=== PATIENT | female | born 1940 | race Asian ===

== ENCOUNTER 2016-08-09 15:41 | Observation (INO) | payer OTHER ==
[~2016-08-09] VITALS: Ht 139.7 cm; Wt 31.7 kg
[~2016-08-09 15:41] MED LIST: ASCA500 PO; CHOL100010 PO; CLIMARA TD; FSMD/70 PO; MULT-506 PO; NAPR1TAB9 PO
[2016-08-09] MEDS ORDERED: SODIUM CHLORIDE 0.9% 1000ML 1,000 ML IV STA (15:47)
[2016-08-09] MEDS ORDERED: LORAZEPAM 2 MG/ML 1 ML VIAL IV STA (15:47)
[2016-08-09] MEDS ORDERED: ONDANSETRON INJ 2 MG/ML 2 ML VIAL IV STA (15:47)
[2016-08-09] MEDS ORDERED: SODIUM CHLORIDE 0.9% 1000ML 500 ML IV STA (15:47)
--- NOTE | 2016-08-09 15:57 | EMERGENCY ROOM VISIT NOTE ---
History Report prepared by Gisella: Ethel Pinon Under the Supervision of: Dr. Timur Simon M.D. First contact with patient: 15:43 Chief Complaint: VOMITING Stated Complaint: NAUSEA, VOMITING, HEADACHE, DIZZINESS History of Present Illness The patient is a 75 year old female who presents to the Emergency Room with complaints of persistent dizziness that began prior to arrival. The patient reports that she was outside gardening today and became dizzy and shaky. She states that she went into her house and began vomiting. The patient has additionally associated eye pain, visual changes, chest pain, shortness of breath, and a headache. She denies any loss of consciousness or head trauma. The patient states that she felt okay prior to gardening today, and reports eating lunch and breakfast. She denies any recent illness. The patient denies any abdominal pain Source of History: patient Onset: prior to arrival Position: other (global) Quality: other (dizziness) Timing: other (persistent) Associated Symptoms: + SOB, + chest pain, + headache, + vomiting, No LOC, No abdominal pain Note: Associated Symptoms: headache, eye pain, visual changes, shaky Review of Systems See HPI for pertinent positives & negatives. A total of 10 systems reviewed and were otherwise negative. Past Medical & Surgical Medical Problems: (1) Abdominal adhesions (2) Biliary colic (3) Cholelithiasis (4) SBO (small bowel obstruction) Surgical Problems: (1) S/P appendectomy (2) S/P hysterectomy Family History Cancer Social History Smoking Status: Never Smoker Marital Status: Housing Status: lives with family Occupation Status: retired Current/Historical Medications Scheduled Alendronate Sodium (Alendronate Sodium), 70 MG PO WK Ascorbic Acid (Ascorbic Acid), 1,000 MG PO DAILY Cholecalciferol (Vitamin D 1000 Unit), 1,000 INTER.UNIT PO DAILY Cholestyramine (Cholestyramine), 4 GM PO BID Cyanocobalamin (Vitamin B12), 1,000 MCG PO DAILY Estradiol (Estradiol Transdermal System), 1 PATCH TOP WK Multiple Vitamins W/ Minerals (Womens 50+ Multi Vitamin), 1 TAB PO DAILY Scheduled PRN Zoebuxgkxu-Xtsopotrtplaf-Bejcc (Fioricet), 1 CAP PO TID PRN for Headache Meloxicam (Mobic), 7.5 MG PO DAILY PRN for Pain Methocarbamol (Methocarbamol), 375 MG PO HS PRN for Muscle Relaxer Allergies Coded Allergies: Tetracycline (Verified Allergy, Mild, UNKNOWN, 12/19/13) Codeine (Verified Allergy, Unknown, UNKNOWN, 12/19/13) Sulfa Drugs (Verified Allergy, Unknown, UNKNOWN, 12/19/13) Tramadol (Verified Allergy, Unknown, UNKNOWN, 12/19/13) Aspirin (Verified Adverse Reaction, Mild, GI UPSET, 12/11/13) NSAIDs (Verified Adverse Reaction, Mild, GI UPSET, 12/19/13) Physical Exam Vital Signs Date Time Temp Pulse Resp B/P Pulse Ox O2 Delivery O2 Flow Rate FiO2 08/09/16 18:53 73 16 111/53 100 Room Air 08/09/16 17:52 75 18 113/51 100 Room Air 08/09/16 17:25 72 14 125/46 100 Room Air 08/09/16 16:09 73 08/09/16 15:58 36.4 70 17 137/94 100 Room Air 08/09/16 15:54 98 Room Air Physical Exam GENERAL: Patient is in moderate distress secondary to vomiting. HEENT: No acute trauma, normocephalic atraumatic, mucous membranes moist, no nasal congestion, no scleral icterus. NECK: No stridor, no adenopathy, no meningismus, trachea is midline. LUNGS: Clear to auscultation bilaterally, no wheeze, no rhonchi, breath sounds equal. HEART: Without murmurs gallops or rubs, regular rate and rhythm. ABDOMEN: Soft, nontender, bowel sounds positive, no hernias, no peritonitis. EXTREMITIES: No cyanosis or edema, full range of motion of all the joints without pain or difficulty, no signs for acute trauma. NEUROLOGIC: Oriented x 3, no acute motor or sensory deficits, no focal weakness. SKIN: No rash, no jaundice, no diaphoresis. Medical Decision & Procedures ER Provider Diagnostic Interpretation: Radiology results as stated below per my review and radiologist interpretation: CT SCAN OF THE BRAIN WITHOUT IV CONTRAST CLINICAL HISTORY: Generalized weakness. Change in mental status. COMPARISON STUDY: MRI of the brain dated 07/21/2015. TECHNIQUE: Unenhanced axial CT scan of the brain is performed from the vertex to the skull base. CT DOSE: 537.48 mGy.cm FINDINGS: Brain parenchyma: There are age-related involutional changes noting mild subcortical and periventricular microangiopathic change. There is no hemorrhage, mass effect, or evidence of acute territorial ischemia by CT criteria. Mineralization is noted in the basal ganglia. Combs-white matter is preserved. No extra-axial fluid collection is seen. Ventricles, sulci, cisterns: Prominent secondary to involutional change. Intracranial vasculature: There is atherosclerotic calcification of the cavernous carotid arteries. Calvarium: Unremarkable. Sinuses and mastoids: The visualized paranasal sinuses are clear. The mastoid air cells are well pneumatized. Orbits: The bony orbits are grossly intact. There is evidence of bilateral ocular lens surgery. IMPRESSION: There is no hemorrhage, mass effect, or evidence of acute territorial ischemia by CT criteria. Electronically signed by: Timur Fonseca M.D. 08/09/2016 4:24 PM Dictated Date/Time: 08/09/2016 4:21 PM SINGLE VIEW CHEST CLINICAL HISTORY: Generalized weakness. Change in mental status. FINDINGS: An AP, portable, upright chest radiograph is compared to study dated 10/14/2013. Correlation is made with chest CT dated 04/10/2013. The examination is degraded by portable technique and patient rotation. The heart is top normal for projection and there is mild atherosclerotic calcification of the thoracic aorta. Emphysema and chronic interstitial thickening are similar to previous. No airspace consolidation or pleural effusion is identified. No pneumothorax is seen. The skeletal structures are osteopenic. The bony thorax is grossly intact. IMPRESSION: Emphysema with no acute cardiopulmonary abnormality. Electronically signed by: Timur Fonseca M.D. 08/09/2016 4:40 PM Dictated Date/Time: 08/09/2016 4:38 PM Laboratory Results 08/09/16 16:00 Red Blood Count 4.20, Mean Corpuscular Volume 98.3, Mean Corpuscular Hemoglobin 32.1, Mean Corpuscular Hemoglobin Concent 32.7, Mean Platelet Volume 9.4, Neutrophils (%) (Auto) 77.4, Lymphocytes (%) (Auto) 16.3, Monocytes (%) (Auto) 5.0, Eosinophils (%) (Auto) 0.7, Basophils (%) (Auto) 0.3, Neutrophils # (Auto) 7.29, Lymphocytes # (Auto) 1.54, Monocytes # (Auto) 0.47, Eosinophils # (Auto) 0.07, Basophils # (Auto) 0.03 08/09/16 16:00 08/09/16 18:11 Test 08/09/16 16:00 08/09/16 17:17 08/09/16 18:11 White Blood Count 9.43 K/uL (4.8-10.8) Red Blood Count 4.20 M/uL (4.2-5.4) Hemoglobin 13.5 g/dL (12.0-16.0) Hematocrit 41.3 % (37-47) Mean Corpuscular Volume 98.3 fL (80-100) Mean Corpuscular Hemoglobin 32.1 pg (25-34) Mean Corpuscular Hemoglobin Concent 32.7 g/dl (32-36) Platelet Count 260 K/uL (130-400) Mean Platelet Volume 9.4 fL (7.4-10.4) Neutrophils (%) (Auto) 77.4 % Lymphocytes (%) (Auto) 16.3 % Monocytes (%) (Auto) 5.0 % Eosinophils (%) (Auto) 0.7 % Basophils (%) (Auto) 0.3 % Neutrophils # (Auto) 7.29 K/uL (1.4-6.5) Lymphocytes # (Auto) 1.54 K/uL (1.2-3.4) Monocytes # (Auto) 0.47 K/uL (0.11-0.59) Eosinophils # (Auto) 0.07 K/uL (0-0.5) Basophils # (Auto) 0.03 K/uL (0-0.2) RDW Standard Deviation 46.5 fL (36.4-46.3) RDW Coefficient of Variation 12.8 % (11.5-14.5) Immature Granulocyte % (Auto) 0.3 % Immature Granulocyte # (Auto) 0.03 K/uL (0.00-0.02) Prothrombin Time 10.0 SECONDS (9.0-12.0) Prothromb Time International Ratio 0.9 (0.9-1.1) Activated Partial Thromboplast Time 22.7 SECONDS (21.0-31.0) Partial Thromboplastin Ratio 0.9 Anion Gap 11.0 mmol/L (3-11) Est Creatinine Clear Calc Drug Dose 30.2 ml/min Estimated GFR () 77.7 Estimated GFR (Non- 67.0 BUN/Creatinine Ratio 15.6 (10-20) Calcium Level 9.2 mg/dl (8.5-10.1) Total Bilirubin 0.7 mg/dl (0.2-1) Alanine Aminotransferase (ALT/SGPT) 27 U/L (12-78) Alkaline Phosphatase 63 U/L (45-117) Troponin I 0.017 ng/ml (0-0.045) Total Protein 8.5 gm/dl (6.4-8.2) Albumin 4.2 gm/dl (3.4-5.0) Globulin 4.3 gm/dl (2.5-4.0) Albumin/Globulin Ratio 1.0 (0.9-2) Thyroid Stimulating Hormone (TSH) 1.050 uIu/ml (0.300-4.500) Aspartate Amino Transf (AST/SGOT) U/L (15-37) Chemistry Specimen Hemolysis Laboratory results reviewed by me. Medications Administered Medications (Trade) Dose Ordered Sig/Bella Route Start Time Stop Time Status Last Admin Dose Admin Sodium Chloride (Nss 1000ml) 500 ml @ 999 mls/hr Q31M STAT IV 08/09/16 15:47 08/09/16 16:17 DC 08/09/16 16:36 999 MLS/HR Ondansetron HCl (Zofran Inj) 4 mg NOW STAT IV 08/09/16 15:47 08/09/16 15:51 DC 08/09/16 16:38 4 MG Lorazepam (Ativan Inj) 0.5 mg NOW STAT IV 08/09/16 15:47 08/09/16 15:51 DC 08/09/16 16:38 0.5 MG ECG Indication: chest pain Rate (beats per minute): 78 Rhythm: normal sinus Findings: no acute ischemic change, no ectopy, other (old inferior infarct) ED Course 1544: The patient was evaluated in room A11B. A complete history and physical exam was performed. 1547: Ordered Ativan Inj 0.5 mg IV, Sodium Chloride 1000 ml @ 200 mls/hr IV, Zofran Inj 4 mg IV, Sodium Chloride 500 ml @ 999 mls/hr IV. 1801: I reevaluated the patient and she is feeling better, but still cannot get up and move around without having symptoms. I discussed all the exam findings with her and I discussed the treatment plan. She verbalized complete understanding and agreement. She will be evaluated for further treatment. 180: I discussed the patients case with ANGEL Denis. She is going to evaluate the patient for further treatment. Medical Decision The patient is a 75 year old female who presents to the ED with complaints of dizziness. Differential diagnoses considered include cardiac ischemia, [place], vertigo, intracranial bleed, migraine, dehydration, exhaustion, electrolyte imbalance, anemia. There is no leukocytosis or concerning anemia. No significant electrolyte abnormality, kidney failure or hepatitis. The patient appears to be in a euthyroid state. Brain CT shows no acute bleed or mass effect. EKG shows a normal sinus rhythm, no acute ischemia. Cardiac enzyme testing times one is not consistent with acute cardiac injury. Chest x-ray does not show mediastinal widening, pneumonia or pneumothorax. Patient received IV saline, IV Zofran and IV Ativan, she feels better but still is very off balance and weak. Any movement causes her feelings of balance and dizziness to worsen, she then becomes nauseated as well. The patient likely has vertigo, posterior circulation stroke is also consideration, although, her history and exam does not warrant TPA administration. Given her findings, given her exam, given her complaints, further workup in the hospital was felt warranted. I did speak to the patient in to case management. The on-call hospitalist was consulted. Medication Reconciliation: I attest that I have personally reviewed the patient' s current medication list. Blood Pressure Screening: Patient was found to have an elevated blood pressure and was referred to their primary doctor for recheck and further treatment. Consults Time Called: 1804 Consulting Physician: ANGEL Denis Returned Call: [phone] I discussed the patients case with ANGEL Denis. She is going to evaluate the patient for further treatment. Impression Primary Impression: Stroke-like symptoms Additional Impressions: Precordial chest pain Vomiting Scribe Attestation The scribe's documentation has been prepared under my direction and personally reviewed by me in its entirety. I confirm that the note above accurately reflects all work, treatment, procedures, and medical decision making performed by me. Stroke t-PA Criteria Reviewed Does NOT meet criteria for t-PA Reason t-PA Not Given Treatment not indicated Departure Information Dispostion Being Evaluated By Hospitalist Referrals Gume Ceballos M.D. (PCP) Problem Qualifiers
[2016-08-09] MEDS ORDERED: CHOL100027 PO (16:21)
[2016-08-09] MEDS ORDERED: CHOL4POW4 PO (16:21)
[2016-08-09] MEDS ORDERED: RBX750 PO (16:21)
[2016-08-09] MEDS ORDERED: MULT-602 PO (16:21)
[2016-08-09] MEDS ORDERED: FSM70 PO (16:21)
[2016-08-09] MEDS ORDERED: ASCO100061 PO (16:21)
[2016-08-09] MEDS ORDERED: MELO7.5T5 PO (16:21)
[2016-08-09] MEDS ORDERED: ESTR0.0510 TOP (16:21)
[2016-08-09] MEDS ORDERED: CYAN100020 PO (16:23)
[2016-08-09 16:24] LABS: BASO % 0.3 %; BASO ABS # 0.03 K/uL (0-0.2); COMPLETE YES; EOS % 0.7 %; HEMATOCRIT 41.3 % (37-47); IG% 0.3 %; LYMPH % 16.3 %; LYMPH ABS # 1.54 K/uL (1.2-3.4); MEAN CELL VOLUME 98.3 fL (80-100); MEAN CORPUSCULAR HEMOGLOBIN 32.1 pg (25-34); MEAN CORPUSCULAR HGB CONC 32.7 g/dl (32-36); MEAN PLATELET VOLUME 9.4 fL (7.4-10.4); NEUT % 77.4 %; PLATELET COUNT 260 K/uL (130-400); WHITE BLOOD COUNT 9.43 K/uL (4.8-10.8)
--- NOTE | 2016-08-09 16:25 | DIAGNOSTIC IMAGING REPORT ---
CT SCAN OF THE BRAIN WITHOUT IV CONTRAST CLINICAL HISTORY: Generalized weakness. Change in mental status. COMPARISON STUDY: MRI of the brain dated 07/21/2015. TECHNIQUE: Unenhanced axial CT scan of the brain is performed from the vertex to the skull base. CT DOSE: 537.48 mGy.cm FINDINGS: Brain parenchyma: There are age-related involutional changes noting mild subcortical and periventricular microangiopathic change. There is no hemorrhage, mass effect, or evidence of acute territorial ischemia by CT criteria. Mineralization is noted in the basal ganglia. Combs-white matter is preserved. No extra-axial fluid collection is seen. Ventricles, sulci, cisterns: Prominent secondary to involutional change. Intracranial vasculature: There is atherosclerotic calcification of the cavernous carotid arteries. Calvarium: Unremarkable. Sinuses and mastoids: The visualized paranasal sinuses are clear. The mastoid air cells are well pneumatized. Orbits: The bony orbits are grossly intact. There is evidence of bilateral ocular lens surgery. IMPRESSION: There is no hemorrhage, mass effect, or evidence of acute territorial ischemia by CT criteria. Electronically signed by: Timur Fonseca M.D. 08/09/2016 4:24 PM Dictated Date/Time: 08/09/2016 4:21 PM
--- NOTE | 2016-08-09 16:41 | DIAGNOSTIC IMAGING REPORT ---
SINGLE VIEW CHEST CLINICAL HISTORY: Generalized weakness. Change in mental status. FINDINGS: An AP, portable, upright chest radiograph is compared to study dated 10/14/2013. Correlation is made with chest CT dated 04/10/2013. The examination is degraded by portable technique and patient rotation. The heart is top normal for projection and there is mild atherosclerotic calcification of the thoracic aorta. Emphysema and chronic interstitial thickening are similar to previous. No airspace consolidation or pleural effusion is identified. No pneumothorax is seen. The skeletal structures are osteopenic. The bony thorax is grossly intact. IMPRESSION: Emphysema with no acute cardiopulmonary abnormality. Electronically signed by: Timur Fonseca M.D. 08/09/2016 4:40 PM Dictated Date/Time: 08/09/2016 4:38 PM
[2016-08-09 16:45] LABS: INR 0.9 (0.9-1.1); PARTIAL THROMBOPLASTIN RATIO 0.9
[2016-08-09 17:03] LABS: ALKALINE PHOSPHATASE 63 U/L (45-117); ALT/SGPT 27 U/L (12-78); BLOOD UREA NITROGEN 13 mg/dl (7-18); BUN/CREATININE RATIO 15.6 (10-20); CALCIUM 9.2 mg/dl (8.5-10.1); CARBON DIOXIDE 23 mmol/L (21-32); CHLORIDE 108 mmol/L (98-107); CREATININE 0.85 mg/dl (0.60-1.20); GLUCOSE 107 mg/dl (70-99); SODIUM 142 mmol/L (136-145)
[2016-08-09] MEDS ORDERED: MELOXICAM 7.5 MG TAB PO PRN (19:00)
[2016-08-09] MEDS ORDERED: MAGNESIUM HYDROXIDE SUSP 30 ML UDC PO PRN (19:00)
[2016-08-09] MEDS ORDERED: PHARMACIST DISCHARGE MED REC CONSULT PRN (19:00)
[2016-08-09] MEDS ORDERED: METHOCARBAMOL 750 MG TAB PO PRN (19:00)
[2016-08-09] MEDS ORDERED: ACETAMINOPHEN 325 MG TAB PO PRN (19:00)
[2016-08-09 19:15] LABS: POTASSIUM 3.6 mmol/L (3.5-5.1)
--- NOTE | 2016-08-09 19:16 | History and Physical ---
History & Physical Date & Time of Service: August 09, 2016 at 19:00 Chief Complaint: Nausea, Vomiting, Headache, Dizziness Primary Care Physician: Gume Ceballos M.D. History of Present Illness Source: patient, spouse 75 y/o F who was brought her after her called the ambulance for multiple sx. Pt was outside for about 2 hours trimming tree branches and other yard work when she suddenly ran into the house with sudden onset of emesis. states that pt was cold and clammy on her forehead "like a corpse". He states that she seemed off balance. is a former and tried to assess pt for heat stroke as he states she rarely drinks much and will frequently go outside without proper hydration. He states that today she was outside for longer than usual working. Pt states that her vision became dark and she was lightheaded. She did not pass out, but was concerned that she was about to and called EMS. Pt states she has a feeling like there is something stuck in her chest and she needs to get it out. She is having difficulty describing this, but is clear that it is not pain. states that she was having trouble catching her breath after several episodes of emesis. He tried to put her to bed, but the ongoing emesis prevented that. Pt has never felt like this in the past. Currently, she has a frontal headache. She states she does not generally get headaches like this. Fiorecet is listed in her medications, but neither she nor her are aware of this medication. Pt denies fever, SOB, chest pain, abd pain, n/v/c/d, LE pain or swelling. ROS as noted above, otherwise neg. During our discussion, pt's daughter called and informed that friends of pt relayed to her last week that pt had mentioned that she had not eaten in 72hrs at that time. states that she will intermittently fast or partially fast at times. Her diet is mostly rice, seaweed, bagels. Apparently her PCP has been working with her to increase protein, however pt prefers a more plant based diet. states that due to his PTSD they have not interacted much the last few days and he is unsure of what pt has eaten recently. She relays that she had a bagel this AM. does remember that yesterday pt seemed more "out of it" and less interactive. He was having PTSD issues and removed himself from further discussion with her "because I don't handle conflict well". Most of the hx is from her as pt is not a quina[place]ic speaker and is having a hard time staying focused on questioning. Past Medical/Surgical History Medical Problems: (1) Abdominal adhesions Status: Resolved (2) Biliary colic Status: Resolved (3) Cholelithiasis Status: Chronic (4) SBO (small bowel obstruction) Status: Resolved Surgical Problems: (1) S/P appendectomy Status: Resolved (2) S/P hysterectomy Status: Resolved Family History Family history was reviewed; no changes noted. Social History Smoking Status: Never Smoker Alcohol Use: none Drug Use: none Marital Status: Occupational Status: retired Multi-Drug Resistant Organisms History of MDRO: No Allergies Coded Allergies: Tetracycline (Verified Allergy, Mild, UNKNOWN, 12/19/13) Codeine (Verified Allergy, Unknown, UNKNOWN, 12/19/13) Sulfa Drugs (Verified Allergy, Unknown, UNKNOWN, 12/19/13) Tramadol (Verified Allergy, Unknown, UNKNOWN, 12/19/13) Aspirin (Verified Adverse Reaction, Mild, GI UPSET, 12/11/13) NSAIDs (Verified Adverse Reaction, Mild, GI UPSET, 12/19/13) Home Medications Scheduled Alendronate Sodium (Alendronate Sodium), 70 MG PO WK Ascorbic Acid (Ascorbic Acid), 1,000 MG PO DAILY Cholecalciferol (Vitamin D 1000 Unit), 1,000 INTER.UNIT PO DAILY Cholestyramine (Cholestyramine), 4 GM PO BID Cyanocobalamin (Vitamin B12), 1,000 MCG PO DAILY Estradiol (Estradiol Transdermal System), 1 PATCH TOP WK Multiple Vitamins W/ Minerals (Womens 50+ Multi Vitamin), 1 TAB PO DAILY Scheduled PRN Xnulwpilpr-Etxmlwnemgrng-Gehxr (Fioricet), 1 CAP PO TID PRN for Headache Meloxicam (Mobic), 7.5 MG PO DAILY PRN for Pain Methocarbamol (Methocarbamol), 375 MG PO HS PRN for Muscle Relaxer Physical Exam Vital Signs Date Time Temp Pulse Resp B/P Pulse Ox O2 Delivery O2 Flow Rate FiO2 08/09/16 18:53 73 16 111/53 100 Room Air 08/09/16 17:52 75 18 113/51 100 Room Air 08/09/16 17:25 72 14 125/46 100 Room Air 08/09/16 16:09 73 08/09/16 15:58 36.4 70 17 137/94 100 Room Air 08/09/16 15:54 98 Room Air General Appearance: no apparent distress, + thin Head: normocephalic, atraumatic Respiratory/Chest: normal breath sounds, no respiratory distress Cardiovascular: regular rate, rhythm, no edema Abdomen/GI: non tender, soft Extremities/Musculoskelatal: no calf tenderness, no pedal edema Neurologic/Psych: cat swamper II-XII nml as tested, alert, oriented x 3, + pertinent finding (= regulatory product manager strength b/l) Skin: normal color, warm/dry Diagnostics Laboratory Results Results Past 24 Hours Test 08/09/16 16:00 08/09/16 17:17 08/09/16 18:11 Range/Units White Blood Count 9.43 4.8-10.8 K/uL Red Blood Count 4.20 4.2-5.4 M/uL Hemoglobin 13.5 12.0-16.0 g/dL Hematocrit 41.3 37-47 % Mean Corpuscular Volume 98.3 80-100 fL Mean Corpuscular Hemoglobin 32.1 25-34 pg Mean Corpuscular Hemoglobin Concent 32.7 32-36 g/dl Platelet Count 260 130-400 K/uL Mean Platelet Volume 9.4 7.4-10.4 fL Neutrophils (%) (Auto) 77.4 % Lymphocytes (%) (Auto) 16.3 % Monocytes (%) (Auto) 5.0 % Eosinophils (%) (Auto) 0.7 % Basophils (%) (Auto) 0.3 % Neutrophils # (Auto) 7.29 1.4-6.5 K/uL Lymphocytes # (Auto) 1.54 1.2-3.4 K/uL Monocytes # (Auto) 0.47 0.11-0.59 K/uL Eosinophils # (Auto) 0.07 0-0.5 K/uL Basophils # (Auto) 0.03 0-0.2 K/uL RDW Standard Deviation 46.5 36.4-46.3 fL RDW Coefficient of Variation 12.8 11.5-14.5 % Immature Granulocyte % (Auto) 0.3 % Immature Granulocyte # (Auto) 0.03 0.00-0.02 K/uL Prothrombin Time 10.0 9.0-12.0 SECONDS Prothromb Time International Ratio 0.9 0.9-1.1 Activated Partial Thromboplast Time 22.7 21.0-31.0 SECONDS Partial Thromboplastin Ratio 0.9 Sodium Level 142 136-145 mmol/L Potassium Level 3.5-5.1 mmol/L Chloride Level 108 98-107 mmol/L Carbon Dioxide Level 23 21-32 mmol/L Anion Gap 11.0 3-11 mmol/L Blood Urea Nitrogen 13 7-18 mg/dl Creatinine 0.85 0.60-1.20 mg/dl Est Creatinine Clear Calc Drug Dose 30.2 ml/min Estimated GFR () 77.7 Estimated GFR (Non- 67.0 BUN/Creatinine Ratio 15.6 10-20 Random Glucose 107 70-99 mg/dl Calcium Level 9.2 8.5-10.1 mg/dl Total Bilirubin 0.7 0.2-1 mg/dl Aspartate Amino Transf (AST/SGOT) 15-37 U/L Alanine Aminotransferase (ALT/SGPT) 27 12-78 U/L Alkaline Phosphatase 63 45-117 U/L Troponin I 0.017 0-0.045 ng/ml Total Protein 8.5 6.4-8.2 gm/dl Albumin 4.2 3.4-5.0 gm/dl Globulin 4.3 2.5-4.0 gm/dl Albumin/Globulin Ratio 1.0 0.9-2 Thyroid Stimulating Hormone (TSH) 1.050 0.300-4.500 uIu/ml Diagnostic Radiology CXR neg for acute CT head neg for acute Impression Assessment and Plan 75 y/o F who was admitted for observation on 08/09 for stroke like sx Stroke like sx: Uncertain etiology, seems most likely possible heat stroke in the setting of dehydration vs CVA vs ACS Feeling improved s/p IVF Electrolytes WNL (K pending) CBC WNL CT head neg for acute CXR neg for acute MRI/MRA/carotid US/ECHO pending Trop neg x1, serials pending Will hold on c/s given multiple possible etiologies as noted above Vitamin D/B12 deficiency: continue home meds Pt is very low risk for CVA and ACS, however sx are concerning for posterior circulation issues given visual changes, also women have atypical [place] presentation. I did discuss this with at length. Level of Care Telemetry Resuscitation Status FULL RESUSCITATION VTE Prophylaxis VTE Risk Assessment Done? Y/N: Yes Risk Level: Low
[2016-08-09] MEDS ORDERED: BUTALBITAL/ACETAMIN/CAFFEINE TAB PO PRN (19:45)
[2016-08-09] MEDS ORDERED: IV FLUIDS COMPLETED PRN (20:00)
--- NOTE | 2016-08-09 21:04 | DIAGNOSTIC IMAGING REPORT ---
ULTRASOUND OF THE CAROTID ARTERIES CLINICAL HISTORY: Stroke COMPARISON STUDY: None. TECHNIQUE: Real-time, grayscale, and color Doppler sonography of the carotid arteries was performed. Imaging reviewed in the transverse and longitudinal planes. NASCET criteria was utilized for stenosis calcification. FINDINGS: There is minimal atherosclerotic plaque present . The peak systolic velocity within the right internal carotid artery is 110 cm/sec. The systolic velocity ratio of right internal to common carotid artery is 1.9. The peak systolic velocity within the left internal carotid artery is 118 cm/sec. The systolic velocity ratio left internal to common carotid artery is 1.7. Antegrade flow is seen in the vertebral arteries. The external carotid arteries are patent. IMPRESSION: No evidence of hemodynamically significant carotid stenosis. Electronically signed by: Toan Chowdhury M.D. 08/09/2016 9:03 PM Dictated Date/Time: 08/09/2016 9:02 PM
--- NOTE | 2016-08-09 21:06 | DIAGNOSTIC IMAGING REPORT ---
MR ANGIOGRAPHY OF THE [place] NO CONTRAST CLINICAL HISTORY: Acute stroke COMPARISON STUDY: None. A 3-D [id number] MR angiographic sequence of the [place] was performed. Both the source and projection images were reviewed. There is no evidence of major intracranial branch occlusion. There is no evidence of intracranial stenosis. There are no lesions suspicious for aneurysm. IMPRESSION: Unremarkable MR angiography of the [place]. Electronically signed by: Toan Chowdhury M.D. 08/09/2016 9:05 PM Dictated Date/Time: 08/09/2016 9:03 PM
[2016-08-09] MEDS ORDERED: BUTA1CAP17 PO (21:37)
[2016-08-09 22:00] VITALS: BP 136/80; PULSE 67; TEMP 36.4; O2SAT 100; Ht 139.7 cm; Wt 31.7 kg
[2016-08-09] MEDS: CHOLESTYRAMINE LIGHT 4 GM PKT PO SCH (22:00)
[2016-08-09] MEDS ORDERED: GADAVIST IV PRN (22:15)
--- NOTE | 2016-08-09 22:15 | DIAGNOSTIC IMAGING REPORT ---
MRI OF THE BRAIN WITHOUT AND WITH IV CONTRAST CLINICAL HISTORY: Stroke NAUSEA VOMITING AND HEADACHE. COMPARISON STUDY: Head CT dated 08/09/2016 , MRI the brain dated 07/21/2015 TECHNIQUE: MRI of the brain was performed from the vertex to the skull base utilizing various T1 and T2 weighted sequences. Following the IV administration of 3 mL of Gadavist contrast, additional enhanced images were obtained. FINDINGS: Sagittal T1, axial diffusion, proton density and T2 weighted axial, coronal FLAIR, and pre and post axial T1-weighted images were acquired. These were supplemented with post gadolinium coronal T1 weighted images. No intra or extra-axial mass lesions are visualized. Axial diffusion-weighted images reveal no evidence of acute or subacute infarction. There is no evidence of ventricular dilatation. Proton density T2-weighted and FLAIR images reveal minimal foci of increased T2 signal within the white matter, likely on a small vessel basis. Atrophic changes are again noted. There are no abnormal flow voids. There is no evidence of pathologic enhancement. IMPRESSION: No acute intracranial findings. No evidence of intracranial mass. No evidence of acute or subacute infarction. Electronically signed by: Toan Chowdhury M.D. 08/09/2016 10:14 PM Dictated Date/Time: 08/09/2016 10:11 PM
--- NOTE | 2016-08-09 22:18 | DIAGNOSTIC IMAGING REPORT ---
MR ANGIOGRAPHY NECK WITHOUT A WITH CONTRAST HISTORY: Stroke TECHNIQUE: [id number] and gadolinium-enhanced MRA of the neck was performed both before and after the intravenous administration of contrast. All measurements were calculated based on NASCET criteria. COMPARISON STUDY: None. FINDINGS: The aortic arch and proximal great vessels are widely patent. There is no significant stenosis, occlusion, or dissection identified within the bilateral common carotid, internal carotid, or vertebral arteries. IMPRESSION: No significant stenosis, occlusion, or dissection identified within the carotid or vertebral arteries. Electronically signed by: Toan Chowdhury M.D. 08/09/2016 10:17 PM Dictated Date/Time: 08/09/2016 10:15 PM
[2016-08-09] MEDS: SODIUM CHLORIDE 0.9% 1000ML 1,000 ML IV SCH (22:21)
[2016-08-09 22:44] LABS: MANUAL MICROSCOPIC REQUIRED? NO; REVIEW REQ? NO; URINE APPEARANCE CLEAR (CLEAR); URINE BILIRUBIN NEG (NEG); URINE COLOR YELLOW; URINE NITRITE NEG (NEG); URINE PH 5.5 (4.5-7.5); UROBILINOGEN NEG (NEG); ZZUR CULT IF INDIC CLEAN CATCH NO
[2016-08-09 23:44] VITALS: BP 109/66; PULSE 59; TEMP 36.3; O2SAT 100
[2016-08-10 04:01] VITALS: BP 118/65; PULSE 57; TEMP 36.5; O2SAT 100
[2016-08-10 06:10] LABS: ESTIMATED AVERAGE GLUCOSE 100 mg/dl; HA1C FLAG Normal (Normal)
[2016-08-10 06:36] LABS: CHOLESTEROL/HDL RATIO 1.9
[2016-08-10 08:02] VITALS: BP 103/61; PULSE 54; TEMP 36.7; O2SAT 100
[2016-08-10] MEDS: ASCORBIC ACID 500 MG TAB PO SCH (08:19)
[2016-08-10] MEDS: CYANOCOBALAMIN 500 MCG TAB (VIT B-12) PO SCH (08:19)
[2016-08-10] MEDS: CEROVITE ADV FORMULA TAB PO SCH (08:19)
[2016-08-10] MEDS: CHOLECALCIFEROL 1000 INTER.UNIT TAB PO SCH (08:19)
[2016-08-10] MEDS: CHOLESTYRAMINE LIGHT 4 GM PKT PO SCH ×2 (08:20→21:21)
[2016-08-10] MEDS: ONDANSETRON INJ 2 MG/ML 2 ML VIAL IV PRN ×2 (09:19→16:03)
[2016-08-10] MEDS ORDERED: KETOROLAC TROMETHAMINE 15 MG/ML VIAL IV ONE (09:30)
[2016-08-10] MEDS ORDERED: MAGNESIUM SULFATE 1GM / D5W 1 GM in PREMIXED IN D5W 100 ML IV ONE (09:30)
[2016-08-10 11:18] VITALS: BP 104/57; PULSE 55; TEMP 36.9; O2SAT 100
--- NOTE | 2016-08-10 12:39 | Progress Note ---
Subjective Date of Service: Aug 10, 2016. Subjective this pt is now complaining of nausea and frontal headache, she states her stomach problems are not new and long standing, she requested that I call her daughter Kaya who relate to me the fact that she has not been eating for some time and also has been losing weight. kaya states patient has many issues with different foods and despite documentation in H&P she really exists on boost instead of food and drinks very little other liquids. Pt is not clear about her stomach issues when asked, today her stomach is not tender and she is mostly bothered by nausea and headache Problem List Medical Problems: (1) Precordial chest pain Status: Acute (2) Stroke-like symptoms Status: Acute (3) Vomiting Status: Acute Review of Systems Constitutional: + weakness, + fatigue, No fever, No chills Eyes: No worsening of vision, No eye pain ENT: No hearing loss, No unusual epistaxis, No nasal symptoms, No sore throat, No tinnitus Respiratory: No cough, No shortness of breath, No dyspnea on exertion Cardiac: No chest pain, No orthopnea, No edema Abdomen: + nausea, + problem reported (loss of appetitie), No pain, No vomiting , No diarrhea Musculoskeletal: No joint pain, No muscle pain Neurologic: No memory loss, No paralysis, No weakness Psychiatric: No depression symptoms, No anhedonism Objective Vital Signs Date Time Temp Pulse Resp B/P (MAP) Pulse Ox O2 Delivery O2 Flow Rate FiO2 08/10/16 12:00 Room Air 08/10/16 11:18 36.9 55 16 104/57 (73) 100 Room Air 08/10/16 08:02 36.7 54 16 103/61 (75) 100 Room Air 08/10/16 08:00 Room Air 08/10/16 04:01 36.5 57 16 118/65 (82) 100 Room Air 08/10/16 04:00 Room Air 08/09/16 23:59 Room Air 08/09/16 23:44 36.3 59 16 109/66 (80) 100 Room Air 08/09/16 22:00 36.4 67 18 136/80 100 Room Air 08/09/16 19:49 80 16 138/70 99 Room Air 08/09/16 18:53 73 16 111/53 100 Room Air 08/09/16 17:52 75 18 113/51 100 Room Air 08/09/16 17:25 72 14 125/46 100 Room Air 08/09/16 16:09 73 08/09/16 15:58 36.4 70 17 137/94 100 Room Air 08/09/16 15:54 98 Room Air Physical Exam General Appearance: + moderate distress, + thin Eyes: PERRL, EOMI ENT: hearing grossly normal, pharynx normal Neck: supple, no JVD, trachea midline Respiratory/Chest: chest non-tender, lungs clear, normal breath sounds Cardiovascular: regular rate, rhythm, no murmur Abdomen: normal bowel sounds, non tender, soft Extremities: no pedal edema, no calf tenderness Neurologic/Psychiatric: drywall taper II-XII nml as tested, alert, oriented x 3 Laboratory Results Last 24 Hours Test 08/09/16 16:00 08/09/16 17:17 08/09/16 18:11 08/09/16 22:15 White Blood Count 9.43 K/uL Red Blood Count 4.20 M/uL Hemoglobin 13.5 g/dL Hematocrit 41.3 % Mean Corpuscular Volume 98.3 fL Mean Corpuscular Hemoglobin 32.1 pg Mean Corpuscular Hemoglobin Concent 32.7 g/dl Platelet Count 260 K/uL Mean Platelet Volume 9.4 fL Neutrophils (%) (Auto) 77.4 % Lymphocytes (%) (Auto) 16.3 % Monocytes (%) (Auto) 5.0 % Eosinophils (%) (Auto) 0.7 % Basophils (%) (Auto) 0.3 % Neutrophils # (Auto) 7.29 K/uL Lymphocytes # (Auto) 1.54 K/uL Monocytes # (Auto) 0.47 K/uL Eosinophils # (Auto) 0.07 K/uL Basophils # (Auto) 0.03 K/uL RDW Standard Deviation 46.5 fL RDW Coefficient of Variation 12.8 % Immature Granulocyte % (Auto) 0.3 % Immature Granulocyte # (Auto) 0.03 K/uL Prothrombin Time 10.0 SECONDS Prothromb Time International Ratio 0.9 Activated Partial Thromboplast Time 22.7 SECONDS Partial Thromboplastin Ratio 0.9 Sodium Level 142 mmol/L Potassium Level mmol/L mmol/L 3.6 mmol/L Chloride Level 108 mmol/L Carbon Dioxide Level 23 mmol/L Anion Gap 11.0 mmol/L Blood Urea Nitrogen 13 mg/dl Creatinine 0.85 mg/dl Est Creatinine Clear Calc Drug Dose 30.2 ml/min Estimated GFR () 77.7 Estimated GFR (Non- 67.0 BUN/Creatinine Ratio 15.6 Random Glucose 107 mg/dl Calcium Level 9.2 mg/dl Total Bilirubin 0.7 mg/dl Aspartate Amino Transf (AST/SGOT) U/L U/L Alanine Aminotransferase (ALT/SGPT) 27 U/L Alkaline Phosphatase 63 U/L Troponin I 0.017 ng/ml Total Protein 8.5 gm/dl Albumin 4.2 gm/dl Globulin 4.3 gm/dl Albumin/Globulin Ratio 1.0 Thyroid Stimulating Hormone (TSH) 1.050 uIu/ml Chemistry Specimen Hemolysis Urine Color YELLOW Urine Appearance CLEAR Urine pH 5.5 Urine Specific [place] 1.020 Urine Protein NEG Urine Glucose (UA) NEG Urine Ketones 1+ Urine Occult Blood NEG Urine Nitrite NEG Urine Bilirubin NEG Urine Urobilinogen NEG Urine Leukocyte Esterase NEG Test 08/10/16 00:24 08/10/16 05:45 08/10/16 09:30 08/10/16 09:52 Total Creatine Kinase 51 U/L 62 U/L Troponin I 0.038 ng/ml 0.027 ng/ml Estimated Average Glucose 100 mg/dl Hemoglobin A1c 5.1 % Triglycerides Level 76 mg/dl Cholesterol Level 131 mg/dl HDL Cholesterol 68 mg/dl LDL Cholesterol, Calculated 48 mg/dl VLDL Cholesterol, Calculated 15 mg/dl Cholesterol/HDL Ratio 1.9 Test 08/10/16 09:55 Influenza Type A Antigen Neg for Influ A Influenza Type B Antigen Neg for Influ B Assessment and Plan 75 F with weakness headache emesis and nausea PT has negative evaluation for stroke or neurologic origin of headache and emesis, including imaging of brain and cerebral circulation. nausea, questionable etiology, will have on ppi, consider carafate, last seem by [facility] GI Dr Phillips, no recent scope weight loss, does have mildly elevated protein level, maybe from dehydration, no abnormal differential but will send SPEP
[2016-08-10 15:38] VITALS: BP 131/65; PULSE 56; TEMP 36.7; O2SAT 100
--- NOTE | 2016-08-10 15:42 | Gastrointestinal Consultation ---
Gastrointestinal Consultation Date of Consultation: Aug 10, 2016 Attending Physician: Jadon Ferrara Consulting Physician: Mariluz Ocampo Reason for Consultation: Weight loss and abd pain History of Present Illness Patient is a 75 year old female seen for weight loss and abd pain. Pt was initially admitted for nausea, vomiting and VALLEJO/dizziness after working in the yard. Her reported that pt doesn't each much, and had been having weight loss. In reviewing pt's chart, she had been around 76lbs since 2001, currently 69 lbs. Pt had hx of multiple abd surgeries including lap cholecystectomy, what sounded like ovarian cyst removal from her description and also possibly lysis of adhesions by surgeons. She had hx of abd pain a few years ago which had prevented her from eating but denies any now. She denies any trouble w chewing food, odynophagia, dysphagia, n/v, abd pain when eating. The only thing she reports not being able to eat are dairy products including cheese/yogurts as they make her have n/v and constipation. Most of her family members have this issues as well thus likely lactose intolerant. Does have diarrhea but suspected to be from bile acids post cholecystectomy. This is controlled w Questran. She was seen previously by Dr. Shultz in 07/2014 for the diarrhea , was also going to be set up for colonoscopy but cancelled. She reports her weight was never above 90lbs. She does drink about 2 cans of Boost daily w small amts of meals. Sometimes may forget to eat but also admits to be depressed given her 's PTSD ([place] Vet). Her labs and imaging studies are reviewed: no signs of leukocytosis, anemia, no coagulopathy, Albumin and protein levels unremarkable. She had several brain imaging which have been unremarkable. She refused to drink PO contrast for CT abd/pelvis eval due to hx of stool incontinence diarrhea w this in the past. Past Medical/Surgical History Medical Problems: (1) Precordial chest pain Status: Acute (2) Stroke-like symptoms Status: Acute (3) Vomiting Status: Acute Past Medical History: See above. Past Surgical History: Multiple abd surgeries Family History Cancer Social History Smoking Status: Never Smoker Drug Use: none Marital Status: Housing Status: lives with family Occupation Status: retired Allergies Coded Allergies: Tetracycline (Verified Allergy, Mild, UNKNOWN, 12/19/13) Codeine (Verified Allergy, Unknown, UNKNOWN, 12/19/13) Sulfa Drugs (Verified Allergy, Unknown, UNKNOWN, 12/19/13) Tramadol (Verified Allergy, Unknown, UNKNOWN, 12/19/13) Aspirin (Verified Adverse Reaction, Mild, GI UPSET, 12/11/13) NSAIDs (Verified Adverse Reaction, Mild, GI UPSET, 12/19/13) Current Medications Home Meds and Scripts Medications Dose Route/Sig Max Daily Dose Days Date Category Dose Instructions Womens 50+ Multi Vitamin (Multiple Vitamins W/ Minerals) 1 Tab Tab 1 Tab PO DAILY 08/09/16 Reported Methocarbamol 750 Mg Tab 375 Mg PO HS PRN 08/09/16 Reported Mobic (Meloxicam) 7.5 Mg Tab 7.5 Mg PO DAILY PRN 08/09/16 Reported Estradiol Transdermal System (Estradiol) 0.05 Mg/24 Hr Dis 1 Patch TOP WK 08/09/16 Reported REMOVE PATCH AND APPLY NEW PATCH EVERY SUNDAY Cholestyramine 4 Gm Pow 4 Gm PO BID 08/09/16 Reported MIX THE CONTENTS OF ONE POWDER PACKET WITH 2 TO 6 OUNCES ON NONCARBONATED BEVERAGE Alendronate Sodium 70 Mg Tab 70 Mg PO WK 08/09/16 Reported TAKE THIS MEDICATION EVERY SUNDAY Ascorbic Acid 1,000 Mg Tab 1,000 Mg PO DAILY 08/09/16 Reported Vitamin D 1000 Unit (Cholecalciferol) 1,000 Unit Cap 1,000 Inter.unit PO DAILY 08/09/16 Reported Vitamin B12 (Cyanocobalamin) 1,000 Mcg Tab 1,000 Mcg PO DAILY 12/11/13 Reported Fioricet (Qroaptxphd-Vdpiqukuhkisz-Rwwra) 1 Cap Cap 1 Cap PO TID PRN 10/13/13 Reported Review of Systems Constitutional: + weight loss, No fever, No chills Respiratory: No cough, No shortness of breath Cardiac: No chest pain, No edema Abdomen: No pain, No nausea, No vomiting, No diarrhea, No constipation Physical Exam Date Time Temp Pulse Resp B/P (MAP) Pulse Ox O2 Delivery O2 Flow Rate FiO2 08/10/16 12:00 Room Air 08/10/16 11:18 36.9 55 16 104/57 (73) 100 Room Air 08/10/16 08:02 36.7 54 16 103/61 (75) 100 Room Air 08/10/16 08:00 Room Air 08/10/16 04:01 36.5 57 16 118/65 (82) 100 Room Air 08/10/16 04:00 Room Air 08/09/16 23:59 Room Air 08/09/16 23:44 36.3 59 16 109/66 (80) 100 Room Air 08/09/16 22:00 36.4 67 18 136/80 100 Room Air 08/09/16 19:49 80 16 138/70 99 Room Air 08/09/16 18:53 73 16 111/53 100 Room Air 08/09/16 17:52 75 18 113/51 100 Room Air 08/09/16 17:25 72 14 125/46 100 Room Air 08/09/16 16:09 73 08/09/16 15:58 36.4 70 17 137/94 100 Room Air 08/09/16 15:54 98 Room Air General Appearance: no apparent distress, + thin Eyes: normal inspection, PERRL, EOMI Neck: supple, no JVD, trachea midline Respiratory/Chest: normal breath sounds, no respiratory distress, no accessory muscle use Cardiovascular: regular rate, rhythm, no gallop, no murmur Abdomen: normal bowel sounds, non tender, soft Extremities: normal inspection, no pedal edema, no calf tenderness Neurologic/Psych: alert, normal mood/affect, oriented x 3 Skin: normal color, no jaundice, no rash Laboratory Results Last 24 Hours Test 08/09/16 16:00 08/09/16 17:17 08/09/16 18:11 08/09/16 22:15 White Blood Count 9.43 K/uL Red Blood Count 4.20 M/uL Hemoglobin 13.5 g/dL Hematocrit 41.3 % Mean Corpuscular Volume 98.3 fL Mean Corpuscular Hemoglobin 32.1 pg Mean Corpuscular Hemoglobin Concent 32.7 g/dl Platelet Count 260 K/uL Mean Platelet Volume 9.4 fL Neutrophils (%) (Auto) 77.4 % Lymphocytes (%) (Auto) 16.3 % Monocytes (%) (Auto) 5.0 % Eosinophils (%) (Auto) 0.7 % Basophils (%) (Auto) 0.3 % Neutrophils # (Auto) 7.29 K/uL Lymphocytes # (Auto) 1.54 K/uL Monocytes # (Auto) 0.47 K/uL Eosinophils # (Auto) 0.07 K/uL Basophils # (Auto) 0.03 K/uL RDW Standard Deviation 46.5 fL RDW Coefficient of Variation 12.8 % Immature Granulocyte % (Auto) 0.3 % Immature Granulocyte # (Auto) 0.03 K/uL Prothrombin Time 10.0 SECONDS Prothromb Time International Ratio 0.9 Activated Partial Thromboplast Time 22.7 SECONDS Partial Thromboplastin Ratio 0.9 Sodium Level 142 mmol/L Potassium Level mmol/L mmol/L 3.6 mmol/L Chloride Level 108 mmol/L Carbon Dioxide Level 23 mmol/L Anion Gap 11.0 mmol/L Blood Urea Nitrogen 13 mg/dl Creatinine 0.85 mg/dl Est Creatinine Clear Calc Drug Dose 30.2 ml/min Estimated GFR () 77.7 Estimated GFR (Non- 67.0 BUN/Creatinine Ratio 15.6 Random Glucose 107 mg/dl Calcium Level 9.2 mg/dl Total Bilirubin 0.7 mg/dl Aspartate Amino Transf (AST/SGOT) U/L U/L Alanine Aminotransferase (ALT/SGPT) 27 U/L Alkaline Phosphatase 63 U/L Troponin I 0.017 ng/ml Total Protein 8.5 gm/dl Albumin 4.2 gm/dl Globulin 4.3 gm/dl Albumin/Globulin Ratio 1.0 Thyroid Stimulating Hormone (TSH) 1.050 uIu/ml Chemistry Specimen Hemolysis Urine Color YELLOW Urine Appearance CLEAR Urine pH 5.5 Urine Specific [place] 1.020 Urine Protein NEG Urine Glucose (UA) NEG Urine Ketones 1+ Urine Occult Blood NEG Urine Nitrite NEG Urine Bilirubin NEG Urine Urobilinogen NEG Urine Leukocyte Esterase NEG Test 08/10/16 00:24 08/10/16 05:45 08/10/16 09:30 08/10/16 09:52 Total Creatine Kinase 51 U/L 62 U/L Troponin I 0.038 ng/ml 0.027 ng/ml Estimated Average Glucose 100 mg/dl Hemoglobin A1c 5.1 % Triglycerides Level 76 mg/dl Cholesterol Level 131 mg/dl HDL Cholesterol 68 mg/dl LDL Cholesterol, Calculated 48 mg/dl VLDL Cholesterol, Calculated 15 mg/dl Cholesterol/HDL Ratio 1.9 Test 08/10/16 09:55 Influenza Type A Antigen Neg for Influ A Influenza Type B Antigen Neg for Influ B Impression Patient is a 75 year old female currently seen for abd pain and weight loss. Though on eval she denies any issues w abd pain, n/v. Abd exam benign. Her weight has been around 76 lbs since 2001, recently dropped to 70 lbs. She reports she never weighed more than 90lbs her whole life. Does take up to 2 cans of Boost for supplements. Admits depressed about her 's PTSD state and may not feel like eating or forget to eat. In the past had refused endoscopic evaluations. Plan - Obtain CT abd/pelvis w IV contrast only. She refused PO contrast use w hx of diarrhea, stool incontinence w this - Questran as dosed for bile acid diarrhea - Spud Driller consult for calorie counts, supplements. Lactose free diet - Trial of Remeron 15mg qHS - Plans above have been discussed w pt's daughter over phone as well (Kaya )
--- NOTE | 2016-08-10 15:45 | DIAGNOSTIC IMAGING REPORT ---
CT OF THE ABDOMEN AND PELVIS WITH CONTRAST CLINICAL HISTORY: Weight loss. History of multiple abdominal surgeries. COMPARISON STUDY: CT of the abdomen and pelvis October 13, 2013. TECHNIQUE: Following IV administration of 92 mL of [id number]-320, axial images of the abdomen and pelvis were obtained from the lung bases to the proximal femurs. Images were reviewed in the axial, sagittal, and coronal planes. IV contrast was administered without complication. CT DOSE: 183.65 mGycm FINDINGS: Visualized portions of the lower chest demonstrate trace bilateral pleural effusions. The liver, spleen, adrenal glands, kidneys and pancreas are unremarkable. There is no biliary ductal dilatation status post cholecystectomy. There is no hydronephrosis. Nephrograms are symmetric. There is no pneumatosis, free air or portal venous gas. A small bowel anastomosis within the pelvis is noted. The appendix is not identified. There is no evidence for a bowel obstruction. There is no abscess. Wall thickening of the sigmoid colon and rectum is noted. There may be mild hyperemia. Skeletal structures are unremarkable. Evaluation is difficult given a paucity of intra-abdominal fat. There are no suspicious osseous lesions. There is no lymphadenopathy. IMPRESSION: 1. Wall thickening of the sigmoid colon and rectum. This is likely due to underdistention although a nonspecific proctocolitis could appear similar. Decreased sensitivity for detection of mucosal lesions given CT technique. 2. Trace bilateral pleural effusions. 3. No evidence for a bowel obstruction. Electronically signed by: Michel Griffin M.D. 08/10/2016 3:42 PM Dictated Date/Time: 08/10/2016 3:30 PM
[2016-08-10] MEDS: SODIUM CHLORIDE 0.9% 1000ML 1,000 ML IV SCH (16:02)
--- NOTE | 2016-08-10 16:46 | ECHOCARDIOGRAM REPORT ---
*NOTICE TO RECEIVING CONSTITUTION PARTY AGENCY This information is strictly Confidential and protected under [place] law. [place] law prohibits you from making any further disclosure of this information unless further disclosure is expressly permitted by the written consent of the person to whom it pertains or is authorized by law. A general authorization for the release of medical or other information is not sufficient for this purpose. Hospital accepts no responsibility if the information is made available to any other person, INCLUDING THE PATIENT. Interpretation Summary * Name: LAKSHMI MASON Study Date: 08/10/2016 02:23 PM BP: 118/65 mmHg * Patient Location: [facility] HR: 58 * : 1940 (M/d/yyyy) Gender: Female Height: 55 in * Age: 75 yrs Ethnicity: Weight: 73 lb * Ordering Physician: Sybil Mccain * Performed By: Ethel Nobles RDCS * * Reason For Study: NEAR SYNCOPE * BSA: 1.1 m2 * -- Conclusions -- * 1. Small left ventricular size with hyperdynamic systolic function. EF > 70%. No regional wall motion abnormalities. Mild left ventricular hypertrophy. Type 2 diastolic dysfunction. * 2. There is mild mitral regurgitation. * 3. There is mild to moderate tricuspid regurgitation. * 4. Normal estimated right ventricular systolic pressure; 30 mmHg. * 5. No prior study available for comparison. Procedure Details * A complete two-dimensional transthoracic echocardiogram was performed (2D, M-mode, Doppler and color flow Doppler). Left Ventricle * Small left ventricular size with hyperdynamic systolic function. EF > 70%. No regional wall motion abnormalities. Mild left ventricular hypertrophy. Right Ventricle * The right ventricle is normal in size and function. * The right ventricular systolic function is normal as assessed by tricuspid annular plane systolic excursion (TAPSE) (normal >1.5 cm). Atria * The left atrial size is normal. * Right atrial size is normal. * There is no evidence of atrial septal defect, but resolution does not allow assessment for a patent foramen ovale. Mitral Valve * The mitral valve is grossly normal. * There is no mitral valve stenosis. * There is mild mitral regurgitation. Tricuspid Valve * The tricuspid valve is not well visualized, but is grossly normal. * There is no tricuspid stenosis. * There is mild to moderate tricuspid regurgitation. Aortic Valve * The aortic valve is trileaflet. * No hemodynamically significant valvular aortic stenosis. * No aortic regurgitation is present. Pulmonic Valve * The pulmonary valve is inadequately visualized, but the Doppler data is adequate for interpretation. Great Vessels * The aortic root is normal size. * Ascending aorta of normal dimension Pericardium/Pleural * There is no pericardial effusion. Great Vessels * Normal inferior vena cava size and collapsability with sniff indicates a normal right atrial pressure of 3 mmHg Left Ventricular Diastolic Function * Diastolic dysfunction, Grade II (pseudonormalization pattern). MMode 2D Measurements and Calculations IVSd 1.2 cm IVSs 1.7 cm LVIDd 2.7 cm LVIDs 1.7 cm LVPWd 1.0 cm LVPWs 1.1 cm IVS/LVPW 1.1 FS 37.3 % EDV(Teich) 26.0 ml ESV(Teich) 8.0 ml EF(Teich) 69.3 % EDV(cubed) 18.8 ml ESV(cubed) 4.6 ml EF(cubed) 75.4 % % IVS thick 48.8 % % LVPW thick 7.2 % LV mass(C)d 80.9 grams LV mass(C)dI 70.8 grams/m\S\2 LV mass(C)s 73.5 grams LV mass(C)sI 64.3 grams/m\S\2 SV(Teich) 18.0 ml SI(Teich) 15.8 ml/m\S\2 SV(cubed) 14.1 ml SI(cubed) 12.4 ml/m\S\2 Ao root diam 2.6 cm Ao root area 5.4 cm\S\2 ACS 1.3 cm LA dimension 2.8 cm asc Aorta Diam 2.0 cm LA/Ao 1.1 LVOT diam 1.8 cm LVOT area 2.6 cm\S\2 LVAd ap4 15.8 cm\S\2 LVLd ap4 6.5 cm EDV(MOD-sp4) 31.3 ml EDV(sp4-el) 32.7 ml LVAs ap4 5.8 cm\S\2 LVLs ap4 4.4 cm ESV(MOD-sp4) 6.3 ml ESV(sp4-el) 6.5 ml EF(MOD-sp4) 79.8 % EF(sp4-el) 80.2 % LVAd ap2 20.3 cm\S\2 LVLd ap2 7.2 cm EDV(MOD-sp2) 46.3 ml EDV(sp2-el) 48.6 ml LVAs ap2 8.1 cm\S\2 LVLs ap2 5.2 cm ESV(MOD-sp2) 11.2 ml ESV(sp2-el) 10.8 ml EF(MOD-sp2) 75.9 % EF(sp2-el) 77.8 % LVLd %diff 10.3 % EDV(MOD-bp) 40.2 ml LVLs %diff 14.8 % ESV(MOD-bp) 8.9 ml EF(MOD-bp) 77.8 % SV(MOD-sp4) 24.9 ml SI(MOD-sp4) 21.8 ml/m\S\2 SV(MOD-sp2) 35.1 ml SI(MOD-sp2) 30.8 ml/m\S\2 SV(MOD-bp) 31.3 ml SI(MOD-bp) 27.4 ml/m\S\2 SV(sp4-el) 26.3 ml SI(sp4-el) 23.0 ml/m\S\2 SV(sp2-el) 37.8 ml SI(sp2-el) 33.1 ml/m\S\2 Doppler Measurements and Calculations MV E max astrid 103.8 cm/sec MV A max astrid 90.7 cm/sec MV E/A 1.1 MV P1/2t max astrid 129.5 cm/sec MV P1/2t 70.8 msec MVA(P1/2t) 3.1 cm\S\2 MV dec slope 535.9 cm/sec\S\2 MV dec time 0.26 sec Ao V2 max 103.8 cm/sec Ao max PG 4.3 mmHg Ao max PG (full) 1.5 mmHg LILA(V,A) 2.1 cm\S\2 LILA(V,D) 2.1 cm\S\2 LV V1 max PG 2.8 mmHg LV V1 max 83.9 cm/sec TV E max astrid 60.6 cm/sec PA V2 max 67.9 cm/sec PA max PG 1.8 mmHg TR max astrid 261.3 cm/sec RVSP(TR) 30.4 mmHg RAP systole 3.0 mmHg
[2016-08-10 18:40] VITALS: BP 127/65; PULSE 52; TEMP 36.6; O2SAT 99
[2016-08-10] MEDS ORDERED: MIRTAZAPINE TAB 15 MG TAB PO SCH (21:00)
[2016-08-10] MEDS: BOOST VANILLA PO SCH ×2 (21:00)
[2016-08-10] MEDS: PANTOprazole INJ 40 MG in SYRINGE 0 ML IV SCH (21:29)
[2016-08-11] VITALS: BP 124/67; PULSE 62; TEMP 36.8; O2SAT 99
[2016-08-11 07:38] VITALS: BP 116/68; PULSE 60; TEMP 36.8; O2SAT 98
[2016-08-11] MEDS: CHOLECALCIFEROL 1000 INTER.UNIT TAB PO SCH (08:33)
[2016-08-11] MEDS: ASCORBIC ACID 500 MG TAB PO SCH (08:33)
[2016-08-11] MEDS: CEROVITE ADV FORMULA TAB PO SCH (08:33)
[2016-08-11] MEDS: PANTOprazole INJ 40 MG in SYRINGE 0 ML IV SCH (08:33)
[2016-08-11] MEDS: CYANOCOBALAMIN 500 MCG TAB (VIT B-12) PO SCH (08:33)
[2016-08-11] MEDS: BOOST VANILLA PO SCH ×2 (08:35)
[2016-08-11] MEDS ORDERED: RMR15 PO (10:07)
--- NOTE | 2016-08-11 10:09 | Discharge Instructions ---
Discharge Instructions Date of Service Aug 11, 2016. Admission Reason for Admission: Stroke-Like Symptoms Discharge Discharge Diagnosis / Problem: headache Discharge Goals Goal(s): Diagnostic testing, Therapeutic intervention Activity Recommendations Activity Limitations: resume your previous activity . Current Hospital Diet Patient's current hospital diet: Regular Diet Discharge Diet Recommended Diet: Regular Diet Pending Studies Studies pending at discharge: no Laboratory Results Hemoglobin A1c Test 08/10/16 05:45 Range/Units Estimated Average Glucose 100 mg/dl Hemoglobin A1c 5.1 4.5-5.6 % Lipid Panel Test 08/10/16 05:45 Range/Units Triglycerides Level 76 0-150 mg/dl Cholesterol Level 131 0-200 mg/dl HDL Cholesterol 68 mg/dl Cholesterol/HDL Ratio 1.9 LDL Cholesterol, Calculated 48 mg/dl Medical Emergencies . Who to Call and When: Medical Emergencies: If at any time you feel your situation is an emergency, please call 911 immediately. . Non-Emergent Contact Non-Emergency issues call your: Primary Care Provider, Magazine Repairer Call Non-Emergent contact if: temperature is above 101, your pain is unusual for you . . "Provider Documentation" section prepared by Jadon Ferrara. . VTE Core Measure Inpt VTE Proph given/why not?: Treatment not indicated
[2016-08-11] MEDS: CHOLESTYRAMINE LIGHT 4 GM PKT PO SCH (10:20)
--- NOTE | 2016-08-11 11:42 | Gastroenterology Progress Note ---
Progress Note Date of Service: Aug 11, 2016 Subjective Pt evaluation today including: conversation w/ patient, physical exam, chart review, lab review, review of studies, review of inpatient medication list Pt's appetite is fair. Denies any n/v, abd pain. CT abd/pelvis reviewed - sigmoid colon thickening likely underdistension instead of colitis. She desires to go home today. Review of Systems Constitutional: No fever, No chills Respiratory: No cough, No shortness of breath Cardiac: No chest pain Abdomen: No pain, No nausea, No vomiting Medications Current Inpatient Medications Medications (Trade) Dose Ordered Sig/Bella Route Start Time Stop Time Status Last Admin Dose Admin Miscellaneous Information (Pharmacist Discharge Med Rec Consult) 1 ea UD PRN N/A 08/09/16 19:00 09/08/16 18:59 Sodium Chloride 1,000 ml @ 50 mls/hr Q20H IV 08/09/16 21:30 09/08/16 21:29 08/10/16 16:02 50 MLS/HR Acetaminophen (Tylenol Tab) 650 mg Q4H PRN PO 08/09/16 19:00 09/08/16 18:59 08/10/16 16:03 650 MG Magnesium Hydroxide (Milk Of Magnesia Susp) 30 ml Q12H PRN PO 08/09/16 19:00 09/08/16 18:59 Ondansetron HCl (Zofran Inj) 4 mg Q6H PRN IV 08/09/16 19:00 09/08/16 18:59 08/10/16 16:03 4 MG Cholecalciferol (Vitamin D Tab) 1,000 inter.unit DAILY PO 08/10/16 09:00 09/09/16 08:59 08/11/16 08:33 1,000 INTER.UNIT Multivitamins/ Minerals (Multivitamin W/ Minerals Tab) 1 tab DAILY PO 08/10/16 09:00 09/09/16 08:59 08/11/16 08:33 1 TAB Ascorbic Acid (Vitamin C Tab) 1,000 mg DAILY PO 08/10/16 09:00 09/09/16 08:59 08/11/16 08:33 1,000 MG Cholestyramine Resin (Questran Powder Light) 4 gm BID@1000,2200 PO 08/09/16 22:00 09/08/16 21:59 08/11/16 10:20 4 GM Cyanocobalamin (Vitamin B-12 Tab) 1,000 mcg DAILY PO 08/10/16 09:00 09/09/16 08:59 08/11/16 08:33 1,000 MCG Miscellaneous (Iv Fluids Completed) 1 ea PRN PRN N/A 08/09/16 20:00 08/09/17 19:59 Gadobutrol (Gadavist) 3 mmol UD PRN IV 08/09/16 22:15 08/13/16 22:14 Enteral Nutritional Formula (Boost) 1 can BID PO 08/10/16 21:00 09/09/16 20:59 08/11/16 08:35 1 CAN Pantoprazole Sodium 40 mg/ Syringe 10 ml @ 5 mls/min DAILY@ IV 08/10/16 21:00 09/09/16 20:59 08/11/16 08:33 5 MLS/MIN Mirtazapine (Remeron Tab) 15 mg HS PO 08/10/16 21:00 09/09/16 20:59 08/10/16 21:22 15 MG Objective Vital Signs Date Time Temp Pulse Resp B/P (MAP) Pulse Ox O2 Delivery O2 Flow Rate FiO2 08/11/16 08:00 Room Air 08/11/16 07:38 36.8 60 16 116/68 (84) 98 Room Air 08/11/16 00:00 36.8 62 16 124/67 (86) 99 Room Air 08/11/16 00:00 Room Air 08/10/16 18:40 36.6 52 16 127/65 (85) 99 Room Air 08/10/16 16:00 Room Air 08/10/16 15:38 36.7 56 16 131/65 (87) 100 Room Air 08/10/16 12:00 Room Air Physical Exam General Appearance: no apparent distress, + thin Eyes: normal inspection, PERRL, EOMI Neck: supple, no JVD, trachea midline Respiratory/Chest: normal breath sounds, no respiratory distress, no accessory muscle use Cardiovascular: regular rate, rhythm, no gallop, no murmur Abdomen: non tender, soft, + abnormal bowel sounds (hypoactive) Extremities: normal inspection, no pedal edema, no calf tenderness Neurologic/Psych: alert, normal mood/affect, oriented x 3 Skin: normal color, no jaundice, no rash Assessment and Plan Patient is a 75 year old female currently seen for abd pain and weight loss. Though on eval she denies any issues w abd pain, n/v. Abd exam benign. Her weight has been around 76 lbs since 2001, recently dropped to 70 lbs. She reports she never weighed more than 90lbs her whole life. Does take up to 2 cans of Boost for supplements. Admits depressed about her 's PTSD state and may not feel like eating or forget to eat. In the past had refused endoscopic evaluations. CT w/o acute GI pathology to explain her weight loss symptoms. She had met w painter and decorator apprentice here w dietary recs. Continues to deny n/v, abd pain. Desires to go home today. Plans - Questran as dosed for bile acid diarrhea - Continue Remeron 15mg qHS - Offered pt GI f/u w Dr. Shultz who she had seen in the past but she said she's unsure if she wants appt. Will ask our schedulers to contact her in 1 -2 weeks to see if she would like appt. - No contraindication for DC.
--- NOTE | 2016-08-11 11:49 | Discharge Summary ---
Discharge Summary Date of Service Aug 11, 2016. Discharge Summary Admission Date: August 09, 2016 at 18:59 Discharge Date: Aug 11, 2016 Discharge Disposition: Home Principal Diagnosis: headache, nausea and vomiting Procedures: CT abd/pelvis, no significant pathology, no SBO neurologic imaging shows no stroke, no vascular insufficiency Consultations: [facility] Medication Reconciliation New Medications: Mirtazapine (Mirtazapine) 15 Mg Tab 15 MG PO HS, #30 TAB 6 Refills Continued Medications: Alendronate Sodium (Alendronate Sodium) 70 Mg Tab 70 MG PO WK TAKE THIS MEDICATION EVERY SUNDAY Ascorbic Acid (Ascorbic Acid) 1,000 Mg Tab 1000 MG PO DAILY Aftstqhfrk-Mwqwlghxsrgid-Uwtka (Fioricet) 1 Cap Cap 1 CAP PO TID PRN for Headache Cholecalciferol (Vitamin D 1000 Unit) 1,000 Unit Cap 1000 INTER.UNIT PO DAILY, CAP Cholestyramine (Cholestyramine) 4 Gm Pow 4 GM PO BID MIX THE CONTENTS OF ONE POWDER PACKET WITH 2 TO 6 OUNCES ON NONCARBONATED BEVERAGE Cyanocobalamin (Vitamin B12) 1,000 Mcg Tab 1000 MCG PO DAILY Estradiol (Estradiol Transdermal System) 0.05 Mg/24 Hr Dis 1 PATCH TOP WK REMOVE PATCH AND APPLY NEW PATCH EVERY SUNDAY Meloxicam (Mobic) 7.5 Mg Tab 7.5 MG PO DAILY PRN for Pain Multiple Vitamins W/ Minerals (Womens 50+ Multi Vitamin) 1 Tab Tab 1 TAB PO DAILY Discontinued Medications: Methocarbamol (Methocarbamol) 750 Mg Tab 375 MG PO HS PRN for Muscle Relaxer Discharge Exam Review of Systems: Constitutional: No fever, No chills Neurologic: + weakness, No memory loss, No paralysis Psychiatric: + depression symptoms, + anxiety Physical Exam: General Appearance: WD/WN, no apparent distress, + thin Eyes: PERRL, EOMI Neurologic/Psychiatric: alert, oriented x 3 Hospital Course 75 F with weakness headache emesis and nausea PT has negative evaluation for stroke or neurologic origin of headache and emesis, including imaging of brain and cerebral circulation. nausea, questionable etiology, [facility] recommends remeron, will start at 15 hs with titration to 30 by outpt providers weight loss, does have mildly elevated protein level, maybe from dehydration, no abnormal differential but pending SPEP Total Time Spent: Greater than 30 minutes This includes examination of the patient, discharge planning, medication reconciliation, and communication with other providers. Discharge Instructions Please refer to the electronic Patient Visit Report (Discharge Instructions) for additional information.
[2016-08-11] MEDS: SODIUM CHLORIDE 0.9% 1000ML 1,000 ML IV SCH (12:19)
[2016-08-11 15:57] VITALS: BP 119/67; PULSE 53; TEMP 36.7; O2SAT 99
[2016-08-11 17:40] LABS: ALBUMIN 3.4 G/DL (3.8-4.8); GAMMA GLOBULIN 1.1 G/DL (0.8-1.7)
--- NOTE | 2016-08-17 06:10 | EDITING REQUIRED CODING QUERY ---
SUPPORTING DIAGNOSIS NEEDED Dr. Mccain, A supporting diagnosis is required for the test/procedure performed on this patient in order for us to be reimbursed by the patient's insurance. Please provide a supporting diagnosis for the following test/procedure listed below next to the test name along with your signature. *If there is no additional diagnosis for this patient that would support the following test/procedure please document that below next to the test/procedure. Test(s)/Procedure(s) that require a supporting diagnosis: * ([id number]) (CAROTID DOP) DUPLEX NECK ARTER DIAGNOSIS: rule out stroke DATE OF SERVICE: 08/09/16 Provider Signature: ____Sybil Mccain, DO Date: __09/03/16 Thank you Roby Sanz [facility] Information Management Once completed, please kindly fax back to [phone] For questions please call [phone]
== END 2016-08-11 15:58 | disposition home health service (06) ==
LOC: ENRESERVDT → ENRESERVTM → EDBD 15:41 → C.EDA 15:42 → C.2T 18:59 → ENRESERV 08-10 17:39 → C.MED 08-10 18:42
PROVIDERS: ADMIT Family Medicine; ATTEND Internal Medicine
DX: R51 Headache (principal); R11.2 Nausea with vomiting, unspecified; R10.9 Unspecified abdominal pain; R63.4 Abnormal weight loss; R42 Dizziness and giddiness; E53.8 Deficiency of other specified B group vitamins; E55.9 Vitamin D deficiency, unspecified; Z90.49 Acquired absence of other specified parts of digestive tract; Z90.710 Acquired absence of both cervix and uterus; Z79.899 Other long term (current) drug therapy

== ENCOUNTER → 2016-09-20 | Outpatient (CLI) | payer OTHER ==
[~2016-09-20] MED LIST changes: -ASCA500 PO; +ASCO100061 PO; +BUTA1CAP17 PO; -CHOL100010 PO; +CHOL100027 PO; +CHOL4POW4 PO; -CLIMARA TD; +CYAN100020 PO; +ESTR0.0510 TOP; +FSM70 PO; -FSMD/70 PO; +MELO7.5T5 PO; -MULT-506 PO; +MULT-602 PO; -NAPR1TAB9 PO; +RMR15 PO
[2016-09-20 18:03] LABS: ALT/SGPT 25 U/L (12-78); AST/SGOT 19 U/L (15-37); BLOOD UREA NITROGEN 11 mg/dl (7-18); BUN/CREATININE RATIO 13.1 (10-20); CARBON DIOXIDE 23 mmol/L (21-32); CHLORIDE 111 mmol/L (98-107); GLUCOSE 87 mg/dl (70-99); POTASSIUM 3.7 mmol/L (3.5-5.1); SODIUM 142 mmol/L (136-145)
[2016-09-20 18:13] LABS: ALKALINE PHOSPHATASE 57 U/L (45-117)
== END | disposition home or self-care (01) ==
LOC: C.LABPBG 14:49
PROVIDERS: ATTEND Neuromusculoskeletal Medicine & OMM
DX: K91.2 Postsurgical malabsorption, not elsewhere classified (principal); R63.4 Abnormal weight loss; R63.0 Anorexia; E55.9 Vitamin D deficiency, unspecified

== ENCOUNTER → 2016-10-06 | Outpatient (CLI) | payer OTHER ==
--- NOTE | 2016-10-06 16:09 | DIAGNOSTIC IMAGING REPORT ---
HEAD WITHOUT CONTRAST (CT) CT DOSE: 638.56 mGycm HISTORY: Mental status change R41.3 Memory [id number] TECHNIQUE: Multiaxial CT images of the head were performed without the use of intravenous contrast. A dose lowering technique was utilized adhering to the principles of ALARA. Comparison: 08/09/2016 Findings: The paranasal sinuses and mastoid air cells are clear. Frontal atrophy unchanged. Mild chronic small vessel change of aging. No acute intracranial hemorrhage. The ventricular system is midline. There is bilateral calcification of the basal ganglia considered chronic. Impression: Chronic change. No acute process. No change from the prior exam. The above report was generated using voice recognition software. It may contain grammatical, syntax or spelling errors. Electronically signed by: Freeman Hurt M.D. 10/06/2016 4:08 PM Dictated Date/Time: 10/06/2016 4:06 PM
== END | disposition home or self-care (01) ==
LOC: C.CTS 15:50
PROVIDERS: ATTEND Internal Medicine
DX: R41.3 Other amnesia (principal)

== ENCOUNTER 2017-04-24 23:21 | Emergency (ER) | payer OTHER ==
[~2017-04-24] VITALS: Ht 152.4 cm; Wt 34.6 kg
[2017-04-24 23:26] VITALS: TEMP 36.6; Ht 152.4 cm; Wt 34.6 kg
[2017-04-25] MEDS ORDERED: ONDANSETRON INJ 2 MG/ML 2 ML VIAL IV STA (00:07)
[2017-04-25] MEDS ORDERED: SODIUM CHLORIDE 0.9% 250ML 250 ML IV STA (00:07)
[2017-04-25] MEDS ORDERED: SODIUM CHLORIDE 0.9% 1000ML 1,000 ML IV STA (00:07)
[2017-04-25] MEDS ORDERED: ONDANSETRON INJ 2 MG/ML 2 ML VIAL ONE (00:07)
[2017-04-25] MEDS ORDERED: OPTIRAY 320 IV PRN (00:15)
[2017-04-25 00:18] LABS: BASO % 0.2 %; BASO ABS # 0.02 K/uL (0-0.2); EOS % 0.8 %; EOS ABS # 0.08 K/uL (0-0.5); HEMATOCRIT 37.9 % (37-47); HEMOGLOBIN 13.4 g/dL (12.0-16.0); IG# 0.03 K/uL (0.00-0.02); LYMPH % 11.2 %; LYMPH ABS # 1.09 K/uL (1.2-3.4); MEAN CELL VOLUME 96.9 fL (80-100); MEAN CORPUSCULAR HEMOGLOBIN 34.3 pg (25-34); MEAN CORPUSCULAR HGB CONC 35.4 g/dl (32-36); MEAN PLATELET VOLUME 9.3 fL (7.4-10.4); MONO % 6.7 %; MONO ABS # 0.65 K/uL (0.11-0.59); NEUT % 80.8 %; NEUT ABS # 7.82 K/uL (1.4-6.5); PLATELET COUNT 236 K/uL (130-400); RED CELL DISTRIBUTION WIDTH CV 13.1 % (11.5-14.5); RED CELL DISTRIBUTION WIDTH SD 45.6 fL (36.4-46.3); WHITE BLOOD COUNT 9.69 K/uL (4.8-10.8)
[2017-04-25 00:35] LABS: ALBUMIN 4.1 gm/dl (3.4-5.0); ALT/SGPT 30 U/L (12-78); AST/SGOT 27 U/L (15-37); BLOOD UREA NITROGEN 9 mg/dl (7-18); CARBON DIOXIDE 21 mmol/L (21-32); CREATININE 0.93 mg/dl (0.60-1.20); GLUCOSE 186 mg/dl (70-99); LIPASE 247 U/L (73-393); POTASSIUM 3.3 mmol/L (3.5-5.1); SODIUM 137 mmol/L (136-145)
[2017-04-25 00:40] LABS: ALKALINE PHOSPHATASE 80 U/L (45-117); TOTAL PROTEIN 8.5 gm/dl (6.4-8.2)
--- NOTE | 2017-04-25 00:50 | EMERGENCY ROOM VISIT NOTE ---
History Report prepared by Gisella: Janice Reeves Under the Supervision of: Dr. Hillary Camejo M.D. First contact with patient: 23:22 Chief Complaint: VOMITING Stated Complaint: VOMITING/DIARRHEA/HEADACHE History of Present Illness The patient is a 76 year old female who presents to the Emergency Room with complaints of sudden vomiting starting this evening. The patient's daughter states that she has Alzheimer and that she lives with her who has PTSD. She states that the patient's found her lying on the floor. She states that no one knows what happened. The patient denies remembering falling. She states that she does remember eating a little cake and V8 energy drink for dinner. She states that she laid down for bed and then decided to get some water. She reports that directly after drinking water she started vomiting this brownish orange. The patient complains of diarrhea, abdominal pain, and a headache. The patient's daughter notes a history of osteoporosis, short bowel syndrome, and problems with her nutrition. The daughter notes that she is unsure if her mother is telling the truth because she usually forgets to eat. Source of History: patient, family Onset: this evening Position: other (global) Quality: other (illness) Timing: other (sudden) Associated Symptoms: + headache, + abdominal pain, + diarrhea Review of Systems See HPI for pertinent positives & negatives. A total of 10 systems reviewed and were otherwise negative. Past Medical & Surgical Medical Problems: (1) Abdominal adhesions (2) Biliary colic (3) Cholelithiasis (4) SBO (small bowel obstruction) Surgical Problems: (1) S/P appendectomy (2) S/P hysterectomy Family History Patient reports no known family medical history. Social History Marital Status: Housing Status: lives with significant other Occupation Status: retired Current/Historical Medications Scheduled Alendronate Sodium (Alendronate Sodium), 70 MG PO WK Ascorbic Acid (Ascorbic Acid), 1,000 MG PO DAILY Calcium Carbonate-Vitamin D (Oscal 500/200 D-3), 1 TAB PO DAILY Cholecalciferol (Vitamin D3), 5,000 UNIT PO DAILY Cholestyramine (Cholestyramine), 4 GM PO BID Dicyclomine Hcl (Dicyclomine Hcl), 10 MG PO BID Estradiol (Estradiol Transdermal System), 1 PATCH TOP WK Mirtazapine (Remeron), 30 MG PO HS Multiple Vitamins W/ Minerals (Womens 50+ Multi Vitamin), 1 TAB PO DAILY Omeprazole (Prilosec), 20 MG PO DAILY Ondasetron Odt (Zofran Odt), 4 MG SL Q6H Scheduled PRN Lybfockanl-Adlcqcjhftkmz-Wfhso (Fioricet), 1 CAP PO TID PRN for Headache Allergies Coded Allergies: Tetracycline (Verified Allergy, Mild, UNKNOWN, 12/19/13) Codeine (Verified Allergy, Unknown, UNKNOWN, 12/19/13) Sulfa Drugs (Verified Allergy, Unknown, UNKNOWN, 12/19/13) Tramadol (Verified Allergy, Unknown, UNKNOWN, 12/19/13) Aspirin (Verified Adverse Reaction, Mild, GI UPSET, 12/11/13) NSAIDs (Verified Adverse Reaction, Mild, GI UPSET, 12/19/13) Physical Exam Vital Signs Date Time Temp Pulse Resp B/P (MAP) Pulse Ox O2 Delivery O2 Flow Rate FiO2 04/25/17 03:14 66 16 102/48 98 04/25/17 01:07 94 20 136/64 100 Room Air 04/24/17 23:42 72 04/24/17 23:26 36.6 77 20 163/69 100 Room Air Physical Exam Vital signs reviewed. General: Well-appearing, elderly, in no significant distress. Actively vomiting a reddish tinged fluid. Thin and frail. HEENT: No scleral icterus, PERRLA, neck supple. Atraumatic. Dry mucus membranes. Cardiovascular: Regular rate and rhythm, no extra sounds. Pulmonary: Clear to auscultation bilaterally, normal work of breathing. Abdomen: Soft, mild diffuse tenderness, no rebound, mild guarding, positive tympany to percussion, nondistended, positive bowel sounds. Well healed incision noted to the midline of the abdomen vertically. Musculoskeletal: Atraumatic, no peripheral edema. Neurologic: Patient awake alert and pleasantly confused. Does answer questions somewhat appropriately. At baseline per daughter. Skin: Warm, dry, no rash Medical Decision & Procedures ER Provider Diagnostic Interpretation: Radiology results as stated below per my review and radiologist interpretation: CT ABDOMEN & PELVIS With Contrast: Nonobstructive bowel gas pattern. Previous bowel surgery. Colon is under distended and may be mildly thickened. Correlate with GI symptoms. Appendix is not identified. The stomach is under distended and not well assessed. Cholecystectomy and mild biliary ductal dilatation/ectasia. Trace focus of air in the bladder. Could be from recent instrumentation or infection with gas forming organism. Hysterectomy. Degenerative changes in the spine with associated central canal and foramina stenoses. Radiologist: Dwight Booth MD Study ready at 01:25 and initial results transmitted at 01:59. CT HEAD: No intracranial hemorrhage or skill fracture. Involutional changes with small vessel disease. Radiologist: Dwight Booth MD Study ready at 01:25 and initial results transmitted at 01:52. Laboratory Results 04/24/17 23:40 Red Blood Count 3.91, Mean Corpuscular Volume 96.9, Mean Corpuscular Hemoglobin 34.3, Mean Corpuscular Hemoglobin Concent 35.4, Mean Platelet Volume 9.3, Neutrophils (%) (Auto) 80.8, Lymphocytes (%) (Auto) 11.2, Monocytes (%) (Auto) 6.7, Eosinophils (%) (Auto) 0.8, Basophils (%) (Auto) 0.2, Neutrophils # (Auto) 7.82, Lymphocytes # (Auto) 1.09, Monocytes # (Auto) 0.65, Eosinophils # (Auto) 0.08, Basophils # (Auto) 0.02 04/24/17 23:40 Test 04/24/17 23:40 04/25/17 00:35 04/25/17 02:44 White Blood Count 9.69 K/uL (4.8-10.8) Red Blood Count 3.91 M/uL (4.2-5.4) Hemoglobin 13.4 g/dL (12.0-16.0) Hematocrit 37.9 % (37-47) Mean Corpuscular Volume 96.9 fL (80-100) Mean Corpuscular Hemoglobin 34.3 pg (25-34) Mean Corpuscular Hemoglobin Concent 35.4 g/dl (32-36) Platelet Count 236 K/uL (130-400) Mean Platelet Volume 9.3 fL (7.4-10.4) Neutrophils (%) (Auto) 80.8 % Lymphocytes (%) (Auto) 11.2 % Monocytes (%) (Auto) 6.7 % Eosinophils (%) (Auto) 0.8 % Basophils (%) (Auto) 0.2 % Neutrophils # (Auto) 7.82 K/uL (1.4-6.5) Lymphocytes # (Auto) 1.09 K/uL (1.2-3.4) Monocytes # (Auto) 0.65 K/uL (0.11-0.59) Eosinophils # (Auto) 0.08 K/uL (0-0.5) Basophils # (Auto) 0.02 K/uL (0-0.2) RDW Standard Deviation 45.6 fL (36.4-46.3) RDW Coefficient of Variation 13.1 % (11.5-14.5) Immature Granulocyte % (Auto) 0.3 % Immature Granulocyte # (Auto) 0.03 K/uL (0.00-0.02) Anion Gap 11.0 mmol/L (3-11) Est Creatinine Clear Calc Drug Dose 28.1 ml/min Estimated GFR () 69.2 Estimated GFR (Non- 59.7 BUN/Creatinine Ratio 10.0 (10-20) Calcium Level 9.0 mg/dl (8.5-10.1) Total Bilirubin 0.5 mg/dl (0.2-1) Direct Bilirubin 0.1 mg/dl (0-0.2) Aspartate Amino Transf (AST/SGOT) 27 U/L (15-37) Alanine Aminotransferase (ALT/SGPT) 30 U/L (12-78) Alkaline Phosphatase 80 U/L (45-117) Troponin I < 0.015 ng/ml (0-0.045) Total Protein 8.5 gm/dl (6.4-8.2) Albumin 4.1 gm/dl (3.4-5.0) Lipase 247 U/L (73-393) Urine Color YELLOW Urine Appearance CLOUDY (CLEAR) Urine pH 5.0 (4.5-7.5) Urine Specific [place] 1.013 (1.000-1.030) Urine Protein NEG (NEG) Urine Glucose (UA) NEG (NEG) Urine Ketones 1+ (NEG) Urine Occult Blood NEG (NEG) Urine Nitrite NEG (NEG) Urine Bilirubin NEG (NEG) Urine Urobilinogen NEG (NEG) Urine Leukocyte Esterase MODERATE (NEG) Urine WBC (Auto) 5-10 /hpf (0-5) Urine RBC (Auto) 0-4 /hpf (0-4) Urine Hyaline Casts (Auto) 0 /lpf (0-5) Urine Epithelial Cells (Auto) >30 /lpf (0-5) Urine Bacteria (Auto) NEG (NEG) Urine Pathogenic Casts /lpf (0) Gastric Fluid pH 3 Gastric Fluid Occult Blood POS (NEG) Laboratory results per my review. Medications Administered Medications (Trade) Dose Ordered Sig/Bella Route Start Time Stop Time Status Last Admin Dose Admin Sodium Chloride 250 ml @ 999 mls/hr Q16M STAT IV 04/25/17 00:07 04/25/17 00:22 DC 04/25/17 00:15 999 MLS/HR Sodium Chloride 1,000 ml @ 125 mls/hr Q8H STAT IV 04/25/17 00:07 04/25/17 08:06 04/25/17 00:07 125 MLS/HR Ondansetron HCl (Zofran Inj) 4 mg NOW STAT IV 04/25/17 00:07 04/25/17 00:10 DC 04/25/17 00:07 4 MG Ondansetron HCl (ZOFRAN ODT 4MG Home Pack) 1 homepack UD ONCE PO 04/25/17 03:15 04/25/17 03:16 DC 04/25/17 03:12 1 HOMEPACK ECG Indication: vomiting Rate (beats per minute): 71 Rhythm: normal sinus Findings: no acute ischemic change, prolonged QT (prlonged QT-c of 528), other (left anterior vesicular block, liekly previous inferior infarct, possible previous anterior infarct) Change: Patient's electrocardiogram interpreted by me. ED Course 0006: Past medical records reviewed. The patient was evaluated in room B2. A complete history and physical examination was performed. 0007: Ordered Zofran Inj 4 mg IV, NSS 1000 ml @ 125 mls/hr IV, NSS 250 ml @ 999 mls/hr IV. 0252: Upon reevaluation, the patient appeared to have improvement of her symptoms. I discussed findings with her and her family. They verbalized agreement of the treatment plan. The patient was discharged home. 0315: Ordered Ondansetron HCl 1 homepack PO. Medical Decision Differential diagnosis: Etiologies such as gastroenteritis, food borne illness, infections, appendicitis , diverticulitis, inflammatory bowel disease, obstruction, GI bleed, biliary pathology, as well as others were entertained. This patient was evaluated and appeared to be in significant discomfort. Patient was retching a blood-tinged emesis. Patient's physical examination is concerning for a mild tympany to the abdomen on percussion. She does have some tenderness. CT scan of the abdomen and pelvis was performed to obstruction given the patient's extensive surgical history. This study is negative. CT scan of the head reveals no evidence of acute intracranial abnormality. Patient was hydrated with normal saline solution, given IV Zofran with significant resolution of symptoms. UA is negative. The patient is medically stable at this time. I do not think she is suffering a significant GI bleed. The patient has been having some increasing memory difficulties per family's account. Case management was asked to evaluate the patient and family. They have requested wheelchair transport home to her for whom they've contacted. The patient was discharged with Zofran ODT to be used as needed for nausea. I suspect a viral etiology to the patient's symptoms today. They will follow-up with their physician for reevaluation and return to the ER for worsening of symptoms or any medical concerns. Medication Reconcilliation Current Medication List: was personally reviewed by me Blood Pressure Screening Patient's blood pressure: Elevated blood pressure Blood pressure disposition: Elevated BP felt to be situational Impression Primary Impression: Nausea & vomiting Scribe Attestation The scribe's documentation has been prepared under my direction and personally reviewed by me in its entirety. I confirm that the note above accurately reflects all work, treatment, procedures, and medical decision making performed by me. Departure Information Dispostion Home / Self-Care Prescriptions Ondasetron Odt (ZOFRAN ODT) 4 Mg Tab 4 MG SL Q6H for Nausea, #10 TAB Prov: Hillary Camejo M.D. 04/25/17 Forms HOME CARE DOCUMENTATION FORM, IMPORTANT VISIT INFORMATION Patient Instructions My [facility] Additional Instructions Diagnosis: Vomiting Encourage plenty of clear fluids. Advance the diet slowly as tolerated: BRAT diet. Bananas, rice, applesauce and toast. Zofran 4 mg ODT every 6 hours as needed for nausea. Follow-up with your physician for reevaluation this week if symptoms persist. Return to the ER for worsening of symptoms or any medical concerns.
[2017-04-25] MEDS ORDERED: ONDA4TAB10 SL (03:04)
[2017-04-25] MEDS ORDERED: MIRT30TA3 PO (03:10)
[2017-04-25] MEDS ORDERED: OMEP20CA9 PO (03:10)
[2017-04-25] MEDS ORDERED: DICY10CA12 PO (03:10)
[2017-04-25 03:14] VITALS: BP 102/48; PULSE 66; O2SAT 98
[2017-04-25] MEDS ORDERED: CALC200T PO (03:14)
[2017-04-25] MEDS ORDERED: CHOL500021 PO (03:14)
[2017-04-25] MEDS ORDERED: ONDANSETRON HOME PACK 4MG OD TAB PO ONE (03:15)
--- NOTE | 2017-04-25 07:02 | DIAGNOSTIC IMAGING REPORT ---
CT OF THE ABDOMEN AND PELVIS WITH CONTRAST CLINICAL HISTORY: Vomiting. History of small bowel obstruction. COMPARISON STUDY: CT of the abdomen and pelvis August 10, 2016. TECHNIQUE: Following IV administration of 70 mL of Optiray-320, axial images of the abdomen and pelvis were obtained from the lung bases to the proximal femurs. Images were reviewed in the axial, sagittal, and coronal planes. IV contrast was administered without complication. A dose lowering technique was utilized adhering to the principles of ALARA. CT DOSE: 231.83 mGy.cm FINDINGS: The liver, spleen, adrenal glands, kidneys and pancreas are unremarkable. There is no pancreatic ductal dilatation. There is no peripancreatic infiltration. Moderate dilatation of the common bile duct has developed. This is likely related to prior cholecystectomy. There is no hydronephrosis. Apparent wall thickening of the distal stomach is likely due to underdistention. There is wall thickening of the left colon. A small bowel anastomosis within the pelvis is noted. There is no evidence for a bowel obstruction. There is no pneumatosis, free air or portal venous gas. There is trace gas within the bladder. No suspicious osseous lesions are present. IMPRESSION: 1. No evidence for a bowel obstruction. 2. Left colon wall thickening which is likely due to underdistention. A nonspecific colitis could appear similar. 3. Moderate biliary ductal dilatation which is likely related to prior cholecystectomy however could be correlated with obstructive liver function tests. 4. Trace gas within the bladder which could be correlated with recent instrumentation. Electronically signed by: Michel Griffin M.D. 04/25/2017 7:01 AM Dictated Date/Time: 04/25/2017 6:49 AM
--- NOTE | 2017-04-25 07:10 | DIAGNOSTIC IMAGING REPORT ---
HEAD CT NONCONTRAST CT DOSE: 537.48 mGy.cm HISTORY: falls, vomiting TECHNIQUE: Multiaxial CT images of the head were performed without the use of intravenous contrast. Automated exposure control was utilized for this study. A dose lowering technique was utilized adhering to the principles of ALARA. Comparison: Head CT 09/28/2016. Findings: The paranasal sinuses and mastoid air cells are clear. The calvarium and skull base are intact. There is no mass, hematoma, midline shift, acute infarct. White matter hypodensity is nonspecific but suggestive of microvascular ischemic change. The ventricles and sulci demonstrate mild age-related involutional changes. Impression: No significant change compared to the prior study. No acute intracranial abnormality. Electronically signed by: Adam Serra M.D. 04/25/2017 7:08 AM Dictated Date/Time: 04/25/2017 7:04 AM
== END 2017-04-25 07:35 | disposition home or self-care (01) ==
LOC: EDBD 23:21 → C.EDB 23:25
DX: R11.2 Nausea with vomiting, unspecified (principal); R19.7 Diarrhea, unspecified; R51 Headache; R10.9 Unspecified abdominal pain; G30.9 Alzheimer's disease, unspecified; F02.80 Dementia in other diseases classified elsewhere, unspecified severity, without behavioral disturbance, psychotic disturbance, mood disturbance, and anxiety; M81.0 Age-related osteoporosis without current pathological fracture; Z79.899 Other long term (current) drug therapy; Z87.19 Personal history of other diseases of the digestive system; Z88.1 Allergy status to other antibiotic agents; Z88.2 Allergy status to sulfonamides; Z88.5 Allergy status to narcotic agent; Z88.6 Allergy status to analgesic agent